=== PATIENT | male | born 1935 | race Asian ===

== ENCOUNTER 2019-09-23 13:34 | Outpatient (CLI) | payer MEDICARE, OTHER ==
[2019-09-23 14:01] LABS: BASOPHILS % (AUTO) 0.9 %; EOSINOPHILS # (AUTO) 0.2 10^3/uL (0.0-0.7); EOSINOPHILS % (AUTO) 4.3 %; HGB - HEMOGLOBIN 11.4 g/dL (14.0-18.0); LYMPHOCYTES % (AUTO) 23.1 %; MEAN CORPUSCULAR HEMOGLOBIN 33.5 pg (27.0-31.0); MEAN CORPUSCULAR HGB CONC 31.8 g/dL (32.0-36.0); MEAN CORPUSCULAR VOLUME 105.3 fL (80.0-94.0); MEAN PLATELET VOLUME 10.4 fL (7.4-11.4); MONOCYTES # (AUTO) 0.2 10^3/uL (0.0-1.0); NEUTROPHILS # (AUTO) 2.9 10^3/uL (1.5-6.6); NEUTROPHILS % (AUTO) 66.5 %; PLT - PLATELET COUNT 188 10^3/uL (130-450); RED CELL DISTRIBUTION WIDTH 11.9 % (12.0-15.0); WHITE BLOOD COUNT 4.4 x10^3/uL (4.8-10.8)
[2019-09-23 14:06] LABS: ALBUMIN 3.6 g/dL (3.2-5.5); ALBUMIN/GLOBULIN RATIO 1.4 (1.0-2.2); BILIRUBIN,TOTAL 0.9 mg/dL (0.2-1.0); CALCIUM 8.6 mg/dL (8.5-10.3); CREATININE 1.4 mg/dL (0.6-1.2); TOTAL PROTEIN 6.1 g/dL (6.7-8.2)
== END 2019-09-23 13:35 | disposition home or self-care (01) ==
LOC: LAB 13:34
DX: R10.12 Left upper quadrant pain (principal)
CPT/HCPCS: 36415; 80053; 82150; 83690; 85025

== ENCOUNTER 2019-09-27 12:44 | Outpatient (CLI) | payer MEDICARE, OTHER ==
[2019-09-27] MEDS ORDERED: IOVERSOL 320 100 ML VIAL IVP ONE ×2 (12:51→15:08)
[2019-09-27] MEDS ORDERED: IOVERSOL 320 50 ML VIAL ONE (12:52)
[2019-09-27 13:10] LABS: ABSOLUTE RETICS # AUTO 0.067 10^6/uL (0.020-0.110); BASOPHILS % (AUTO) 0.7 %; EOSINOPHILS # (AUTO) 0.2 10^3/uL (0.0-0.7); EOSINOPHILS % (AUTO) 3.9 %; HGB - HEMOGLOBIN 11.3 g/dL (14.0-18.0); LYMPHOCYTES % (AUTO) 23.4 %; MEAN CORPUSCULAR HEMOGLOBIN 34.8 pg (27.0-31.0); MEAN CORPUSCULAR HGB CONC 32.6 g/dL (32.0-36.0); MEAN CORPUSCULAR VOLUME 106.8 fL (80.0-94.0); MEAN PLATELET VOLUME 10.1 fL (7.4-11.4); MONOCYTES # (AUTO) 0.3 10^3/uL (0.0-1.0); MONOCYTES % (AUTO) 7.3 %; NEUTROPHILS # (AUTO) 2.8 10^3/uL (1.5-6.6); NEUTROPHILS % (AUTO) 64.5 %; PLT - PLATELET COUNT 183 10^3/uL (130-450); RED BLOOD COUNT 3.25 10^6/uL (4.70-6.10); RED CELL DISTRIBUTION WIDTH 11.8 % (12.0-15.0); WHITE BLOOD COUNT 4.4 x10^3/uL (4.8-10.8)
[2019-09-27 13:10] LABS: BILIRUBIN,URINE NEGATIVE (NEGATIVE); GLUCOSE, URINE (UA) NEGATIVE (NEGATIVE); KETONES,URINE (UA) NEGATIVE (NEGATIVE); LEUKOCYTE ESTERASE, URINE NEGATIVE (NEGATIVE); NITRITE,URINE NEGATIVE (NEGATIVE); OCCULT BLOOD,URINE NEGATIVE (NEGATIVE); PROTEIN,URINE NEGATIVE (NEGATIVE); UROBILINOGEN,URINE 0.2 (NORMAL) E.U./dL (NORMAL)
[2019-09-27 13:11] LABS: CLARITY,URINE CLEAR (CLEAR)
[2019-09-27 13:18] LABS: BACTERIA,URINE None Seen /HPF (None Seen); RBC,URINE 0-5 /HPF (0-5); SQUAMOUS EPITHELIAL CELL,UR RARE Squamous (<= Few)
[2019-09-27 13:48] LABS: THYROID STIMULATING HORMONE 2.92 uIU/mL (0.34-5.60)
[2019-09-27 13:55] LABS: FERRITIN 17.3 ng/mL (23.9-336.2)
[2019-09-27 13:57] LABS: CREATININE 1.1 mg/dL (0.6-1.2)
[2019-09-27] MEDS ORDERED: IOVERSOL 320 50 ML VIAL PO ONE (15:08)
--- NOTE | 2019-09-28 15:41 | CT Report ---
Reason: MACROCYTIC ANEMA, LUQ ABDOMINAL PAIN Procedure Date: 09/27/2019 Accession Number: [id number] / [id number] Procedure: CT - Abdomen/Pelvis W CPT Code: Final Report FULL RESULT: EXAM: CT ABDOMEN AND PELVIS EXAM DATE: 09/27/2019 02:19 PM. CLINICAL HISTORY: MACROCYTIC ANEMA, LUQ ABDOMINAL PAIN. COMPARISONS: None. TECHNIQUE: Routine helical CT imaging was performed through the abdomen and pelvis. IV contrast: OPTIRAY 320. Enteric contrast: No. Reconstructions: Coronal and sagittal. In accordance with CT protocol optimization, one or more of the following dose reduction techniques were utilized for this exam: automated exposure control, adjustment of mA and/or KV based on patient size, or use of iterative reconstructive technique. FINDINGS: Lung Bases: Coronary arterial calcifications are present. Right lower lobe atelectasis. Liver: Normal. No masses. Gallbladder/Bile Ducts: Unremarkable. Spleen: No splenomegaly. Several tiny low-attenuation foci are too small to characterize, question small cysts or hemangiomas. Pancreas: Partial fatty replacement of pancreatic head and neck. No inflammatory change or mass evident. Adrenal Glands: Normal. Kidneys: Simple benign-appearing bilateral renal cysts, no imaging follow-up is recommended per consensus recommendations based imaging criteria. No suspicious masses or hydronephrosis. Peritoneal Cavity/Bowel: Colonic diverticulosis. No focal inflammation. The appendix is well visualized and normal. Pelvic Organs: Enlarged prostate measuring 6.3 by 6.9 x 6.9 cm, 157 cc. Bladder is mostly collapsed. Vasculature: 2.8 cm distal abdominal aortic ectasia, increasing from 2 cm mid abdominal aortic diameter. Bones: Thoracolumbar DISH. Advanced lumbar spine degenerative changes. L5 pars defects. Other: None. IMPRESSION: 1. Significantly enlarged prostate, 157 cc. 2. Diverticulosis. No evidence for diverticulitis. 3. Distal abdominal aortic ectasia, measuring up to 2.8 cm diameter. RADIA
== END 2019-09-27 12:45 | disposition home or self-care (01) ==
LOC: DI 12:44
PROVIDERS: ATTEND Internal Medicine
DX: N40.0 Benign prostatic hyperplasia without lower urinary tract symptoms (principal); K57.30 Diverticulosis of large intestine without perforation or abscess without bleeding; I77.819 Aortic ectasia, unspecified site; D53.9 Nutritional anemia, unspecified
CPT/HCPCS: 36415; 74177; 80048; 81001; 81599; 82607; 82728; 83540; 84153; 84443; 84466; 85025; 85045; Q9967; 87086

== ENCOUNTER 2019-09-29 10:24 | Outpatient (CLI) | payer MEDICARE, OTHER | END 2019-09-29 10:25 | disposition home or self-care (01) | LOC: LAB 10:24 | PROVIDERS: ATTEND Internal Medicine | DX: D53.9 Nutritional anemia, unspecified (principal) | CPT/HCPCS: 81599; 82570; 84156; 84166 ==

== ENCOUNTER 2020-10-19 10:30 | Outpatient (CLI) | payer MEDICARE, OTHER ==
--- NOTE | 2020-10-19 11:30 | XRAY Report ---
PROCEDURE: Hand 2 View BILAT INDICATIONS: BILAT HAND PAIN TECHNIQUE: 2 views of each hand(s) acquired. COMPARISON: None FINDINGS: Bones: No fractures or dislocations. No suspicious bony lesions. Mild joint space narrowing and pe riarticular osteophyte formation at the radiocarpal, scaphotrapezial, first metacarpal joints, as wel l as the interphalangeal joints of the digits, indicating osteoarthritis. Soft tissues: No suspicious soft tissue calcifications. IMPRESSION: Multifocal osteoarthritis. No acute fracture. No osseous lesion. If symptoms and/or clinical suspicio n for pathology continue, further assessment with repeat plain films, or advanced imaging (e.g., CT, MRI, or bone scan) is recommended for further assessment. Reviewed by: Anny Latham MD on 10/19/2020 11:28 AM PDT Approved by: Anny Latham MD on 10/19/2020 11:28 AM PDT Station ID: [id number]
--- NOTE | 2020-10-19 15:10 | XRAY Report ---
PROCEDURE: Knee 3 View BILAT INDICATIONS: BILAT KNEE PAIN TECHNIQUE: 3 views of the bilateral knee(s) were acquired. COMPARISON: None. FINDINGS: Bones: No fractures or dislocations. No suspicious bony lesions. Left knee demonstrates severe med ial and moderate patellofemoral compartment narrowing. Periarticular osteophytes are present as well as subchondral sclerosis within the medial compartment, as well as patellar spur. The right knee demo nstrates minimal medial and mild patellofemoral compartment narrowing with small patellar spur. Soft tissues: Mild left and minimal right joint effusion. No suspicious soft tissue calcifications. IMPRESSION: 1. Bilateral arthritic change most severe in the medial compartment on the left as above. Reviewed by: Marga Spears MD on 10/19/2020 3:09 PM PDT Approved by: Marga Spears MD on 10/19/2020 3:09 PM PDT Station ID: [id number]
== END 2020-10-19 10:31 | disposition home or self-care (01) ==
LOC: DI 10:30
PROVIDERS: ATTEND Internal Medicine
DX: M19.042 Primary osteoarthritis, left hand (principal); M19.041 Primary osteoarthritis, right hand; M17.0 Bilateral primary osteoarthritis of knee